=== PATIENT | female | born 1980 | race Caucasian/White ===

== ENCOUNTER 2023-11-14 13:52 | Emergency (ER) | payer OTHER, SELFPAY ==
[2023-11-14 13:59] VITALS: BP 128/91
[2023-11-14 14:15] LABS: % Basophils 0.8 % (0-2); % Eosinophils 1.9 % (0-6); % Immature Granulocytes 0.2 % (0-0.5); % Lymphocytes 21.6 % (20.5-51.1); % Monocytes 9.9 % (1.7-9.3); % Neutrophils 65.6 % (42.2-75.2); Absolute Basophils 0.1 10^3/uL (0-0.2); Absolute Eosinophils 0.2 10^3/uL (0-0.7); Absolute Lymphocytes 1.8 10^3/uL (1.2-3.4); Absolute Monocytes 0.8 10^3/uL (0.1-0.6); Absolute Neutrophils 5.6 10^3/uL (1.4-6.5); Hematocrit 36.4 % (37.0-47.0); Hemoglobin 12.5 g/dL (12.0-16.0); Mean Corp Hgb Conc. 34.3 g/dL (33.0-37.0); Mean Corpuscular Hgb 28.9 pg (27.0-31.0); Mean Corpuscular Volume 84.3 fL (81.0-99.0); Mean Platelet Volume 9.5 fL (7.4-10.4); Nucleated Red Blood Cells % 0 %; Platelet Count 255 10^3/uL (130-400); Red Blood Cell Count 4.32 10^6/uL (4.20-5.40); Red Cell Dist. Width 13.6 % (11.5-14.5); White Blood Cell Count 8.5 10^3/uL (4.8-10.8)
[2023-11-14 14:29] LABS: ALT (SGPT) 13 U/L (0-35); AST (SGOT) 18 U/L (14-36); Albumin 4.3 g/dl (3.5-5.0); Alkaline Phosphatase 39 U/L (38-126); Blood Urea Nitrogen 9 mg/dl (7-17); Calcium 9.5 mg/dl (8.4-10.2); Carbon Dioxide 23 mmol/L (22-30); Chloride 108 mmol/L (98-107); Glucose 82 mg/dl (70-99); Potassium 4.2 mmol/L (3.5-5.1); Sodium 139 mmol/L (135-145); Total Bilirubin 0.2 mg/dl (0.2-1.3); Total Protein 6.8 g/dl (6.3-8.2); eGFR > 60.00
[2023-11-14 14:41] LABS: Troponin I < 0.012 ng/ml
[2023-11-14 14:42] LABS: COVID-19 Antigen Negative (Negative)
[2023-11-14 15:21] VITALS: BP 112/70
--- NOTE | 2023-11-14 20:58 | ED.GENMED ---
History of Present Illness
General
Chief Complaint: Breathing Problem
Time Seen by Provider: 11/14/23 20:58
Travel History
Have you had any contact with someone who has COVID-19?: No
Do you have any symptoms of coronavirus? Fever > 100 degrees, chills, cough, shortness of breath, sore throat, loss of taste or smell, muscle aches, or headache?: No
History of Present Illness
History of Present Illness:
HPI: Patient is shortness of breath over the past 5 days. This is associated with cough and sore throat. She has not had fevers. She states that she tested negative for strep throat recently. She states she is felt somewhat dizzy earlier. She
wants me to provide something for her sore throat.
EXAM:
GENERAL: Well appearing in no distress
HEENT: Moist oral mucosa, there is no exudate however there may be some minimal erythema
CARDIOVASCULAR: No murmurs, normal heart rate, regular rhythm, No chest wall tenderness
PULMONARY: No respiratory distress, breath sounds are clear but may be slightly decreased equally
ABDOMEN: Soft with no peritoneal signs, no tenderness
NEUROLOGIC: Excellent strength all extremities, no coordination deficits
PSYCHIATRIC: Appropriate mental status, normal insight and judgement
EXTREMITIES: Nontender, no edema, moves all extremities equally
SKIN: No rash, no lesions
TIME OF INITIAL ENCOUNTER: 8:30 PM
NUMBER AND COMPLEXITY OF PROBLEMS ADDRESSED AT THE ENCOUNTER
� Chronic conditions affecting care: Anxiety, hypothyroidism
� Acute Exacerbation and/or Progression of Chronic Illness: This is an acute problem
� Differential Diagnosis includes: Viral syndrome, bronchitis, she tested negative for strep throat, doubt sepsis/bacteremia
AMOUNT AND/OR COMPLEXITY OF DATA TO BE REVIEWED AND ANALYZED
� I performed an independent evaluation of and my interpretation is:
EKG: Sinus 70, no acute ST abnormality
CT:
X-rays: Chest x-ray shows no acute abnormality
Laboratory Studies: White count is normal at 8.5, hemoglobin normal, chemistries including troponin are unremarkable. COVID-negative. Flu negative.
Other:
� Review of other/old records: Blood work from 2021 was unremarkable
� Clinical information was obtained by an independent historian: None needed
� Prescriptions/Medications Considered but not given: Offered and considered steroids however the patient declines. Offered and considered IM Toradol however the patient declines.
� Further testing considered but not performed:
RISK OF COMPLICATIONS AND/OR MORBIDITY OR MORTALITY OF PATIENT MANAGEMENT
� Social determinants of health affecting care: Lives at home
� Discussion with other providers:
� Escalation of care including admission/observation vs risk of discharge considered: Patient declined steroids. DuoNeb was tried. Blood work unremarkable. Chest x-ray negative. On reassessment she is at the DuoNeb did not
help much. Suspect viral syndrome. She will take a prescription for steroids to start in the morning.
Past History
Past History
ED Past Medical History: Hypothyroidism and Psychiatric (Anxiety)
ED Past Surgical History: None
Social History
Tobacco: Non-smoker
Personal:
Phy Exam
Physical Exam
Physical Exam:
See HPI
Course
Orders/Labs/Results
Orders:
Orders
11/14/23 14:01
Electrocardiogram (*1) Urgent
Reason for Study: Shortness of Breath
EKG- Treatment ONCE
11/14/23 14:07
COVID-19 Antigen Urgent
Source: Nasal Swab
Complete Blood Count/With Diff Urgent
Comprehensive Metabolic Panel Urgent
Troponin I Urgent
Influenza A+B Rapid Molecular Urgent
AZIZA Source: Nasal Swab
Specimen Description:
11/14/23 21:09
Ipratropium/Albuterol Sulfate [Duoneb] 3 ml INH R NOW ONE
CR Chest - 2 Views Urgent
Comment:
Reason For Exam: cr sob cough
Abnormal Lab Results
11/14/23
14:07
Hct 36.4 L %
(37.0-47.0)
Absolute Monos (auto) 0.8 H 10^3/uL
(0.1-0.6)
Monocytes % 9.9 H %
(1.7-9.3)
Chloride 108 H mmol/L
(98-107)
11/14/23 14:07
11/14/23 14:07
Vital Signs
Temp: 98.4 F
Initial and Last Documented VS:
Initial Vital Signs
Temp Pulse Resp BP Pulse Ox
99.8 F 91 18 128/91 100
11/14/23 13:59 11/14/23 13:59 11/14/23 13:59 11/14/23 13:59 11/14/23 13:59
Last Documented Vital Signs
Temp Pulse Resp BP Pulse Ox
98.4 F 70 16 110/75 98
11/14/23 21:38 11/14/23 22:45 11/14/23 22:45 11/14/23 22:45 11/14/23 22:45
*Critical Care Note
Total Time (30-74mins, 75-104mins- exclusive of procedures): Not Applicable
ED Attending Note
-
Portions of this chart may have been created with voice recognition software.� Occasional wrong word or��sound alike� substitutions may have occurred due to the inherent limitations of voice recognition software.
Discharge Plan
Departure
Patient Disposition: Home (Routine Discharge)
Date of Disposition: 11/14/23
Time of Disposition: 23:39
Patient with high blood pressure during this ER visit?: Yes
Discharge Problem:
Acute viral syndrome
Instructions: Viral Pharyngitis, Sore throat in adults
Prescriptions:
New
prednisone 50 mg tablet
50 mg PO DAILY Qty: 5 0RF
No Action
No Current Medications
amoxicillin 500 MG capsule
500 mg PO TID Qty: 30 0RF
ciprofloxacin HCl [Cetraxal] 1 EACH dropperette
2 drp OT BID Qty: 1 0RF
acyclovir 200 MG capsule
200 mg PO 5/D Qty: 15 0RF
Rx Instructions:
Take for outbreaks
ondansetron 4 MG tablet,disintegrating
4 mg PO TIDPRN PRN (Reason: nausea/vomiting) Qty: 6 0RF
ondansetron 4 mg tablet,disintegrating
4 mg PO TIDPRN PRN (Reason: nausea/vomiting) Qty: 10 0RF
Referrals:
Deep Saldana, DO [Family Provider] -
Activity Restrictions/Additional Instructions:
Chest x-ray is clear. COVID and flu testing is both negative. I suspect that you have a viral illness. I did send a prescription for steroids to your pharmacy as this may help with throat pain and overall inflammation. Return here if worse.
Interventions
Interventions:
*Risk Screen - Suicide Last Done: 11/14/23 13:59
*General Assessment Last Done: 11/14/23 13:59
*Neglect/Abuse Screening Last Done: 11/14/23 13:59
*ED COVID-19 Vaccine History Last Done: 11/14/23 13:59
ED- Cardiac Assessment Last Done: 11/14/23 23:03
ED- Pulmonary Assessment Last Done: 11/14/23 23:03
Discharge Date and Time
Print Language: LITHUANIAN
[2023-11-14] MEDS: DUONEB 3 ML INH (21:19)
[2023-11-14 22:45] VITALS: BP 110/75
== END 2023-11-15 00:20 | disposition home or self-care (01) ==
LOC: EMR 13:52
PROVIDERS: Emergency Medicine; EMERGENCY PHYSICIAN Emergency Medicine; FAMILY PHYSICIAN Family Medicine
DX: B34.9 Viral infection, unspecified (principal); R42 Dizziness and giddiness; Z11.52 Encounter for screening for COVID-19; R03.0 Elevated blood-pressure reading, without diagnosis of hypertension; E03.9 Hypothyroidism, unspecified; F41.9 Anxiety disorder, unspecified
CPT/HCPCS: 99283; 94640; 71046; 80053; 84484; 85025; 87502; 87811; 93005